=== PATIENT | female | born 1985 | race Caucasian/White ===

== ENCOUNTER 2025-07-05 22:29 | Emergency (ER) | payer OTHER ==
[~2025-07-05] VITALS: Ht 177.8 cm; Wt 166.8 kg
[2025-07-05 22:30] VITALS: TEMP 99.6
[2025-07-05] MEDS: SODIUM CHLORIDE 0.9% 1,000 ML IV ONE (22:54)
[2025-07-05 22:55] LABS: PLATELET COUNT (AUTO) 333 K/uL (150-450); RED BLOOD CELL COUNT(AUTO) 4.19 MIL/uL (4.00-5.20); RED CELL DISTRIBUTION WIDTH 14.0 % (11.5-14.5); WHITE BLOOD COUNT (AUTO) 7.9 K/uL (4.5-11.0)
[2025-07-05 23:04] LABS: CALCIUM, TOTAL 8.9 mg/dL (8.8-10.5); CREATININE 0.98 mg/dL (0.60-1.30); GLOMERULAR FILTR. RATE CALC > 60 mL/min (>60); GLUCOSE,RANDOM 111 mg/dL (70-110); SODIUM SERUM 138 mmol/L (136-145); UREA NITROGEN, BLOOD 18 mg/dL (7-18)
[2025-07-06] MEDS ORDERED: PRED-554 PO (02:28)
[2025-07-06 02:40] VITALS: BP 125/78; PULSE 79; RESP 16; O2SAT 98
== END 2025-07-06 02:45 | disposition home or self-care (01) ==
LOC: EMS 22:35 → EDBD 22:35 → EMS 07-06 02:45
DX: T78.02XA Anaphylactic reaction due to shellfish (crustaceans), initial encounter (principal); Y92.89 Other specified places as the place of occurrence of the external cause
CPT/HCPCS: 99283; 96374; 96361; 80048; 84703; 85025; 36415; J2919; J7030